=== PATIENT | female | born 1970 | race Caucasian/White ===

== ENCOUNTER → 2016-10-09 | Outpatient (CLI) | payer OTHER ==
[~2016-10-09] MED LIST: ASMANEX HFA13 GM IH; ASPIR-LOW81 MG PO; ATROVENT H200 INHALA IH; AZITHROMYCIN500 M1 PO; BACLOFEN10 MG PO; BENICAR HCT 401 EACH PO; CORICIDIN HBP1 EAC5 PO; DICLOFENAC SOD100 MG PO; DICLOFENAC SODI50 MG PO; FLEXERIL10 MG PO; GABAPENTIN300 MG PO; GUAIFENESIN WI120 M1 PO; HYDROCHLOROTHIA25 MG PO; LEVAQUIN500 MG PO; LOPRESSOR100 M1 PO; METOPROLOL TAR100 MG PO; METOPROLOL TART50 MG PO; MOTRIN800 MG PO; NAPROXEN500 MG PO; NEURONTIN800 MG PO; NOHOMEMEDS; NORCO 5/3251 TABLET PO; PERCOCET 5/31 TABLET PO; PREDNISONE10 M1 PO; PREDNISONE20 MG PO; PROAIR HFA8.5 GM IH; RELAFEN750 MG PO; TOLTERODINE TART2 MG PO; TRAMADOL HCL50 MG PO; VALIUM5 MG PO; VALSARTAN160 MG PO; ZANAFLEX4 MG PO; ZYRTEC10 M3 PO
== END | disposition home or self-care (01) ==
LOC: CDC 10:51
DX: R94.31 Abnormal electrocardiogram [ECG] [EKG] (principal); M25.532 Pain in left wrist; G56.02 Carpal tunnel syndrome, left upper limb; G56.22 Lesion of ulnar nerve, left upper limb
CPT/HCPCS: 93000

== ENCOUNTER 2016-10-11 12:41 | Day surgery (SDC) | payer OTHER ==
[~2016-10-11] VITALS: Ht 157.5 cm; Wt 63.5 kg
[~2016-10-11 12:41] MED LIST changes: -RELAFEN750 MG PO; -TOLTERODINE TART2 MG PO
[2016-10-11] MEDS ORDERED: TOLTERODINE TART2 MG PO (13:27)
[2016-10-11] MEDS ORDERED: RELAFEN750 MG PO (13:28)
[2016-10-11 13:40] VITALS: BP 141/76
[2016-10-11 19:02] VITALS: BP 137/81
== END 2016-10-11 19:10 | disposition home or self-care (01) ==
LOC: SDC
DX: G56.02 Carpal tunnel syndrome, left upper limb (principal); G56.22 Lesion of ulnar nerve, left upper limb; I10 Essential (primary) hypertension; J44.9 Chronic obstructive pulmonary disease, unspecified; M54.30 Sciatica, unspecified side
CPT/HCPCS: 93005; J1100; J2250; J2405; J3010; S0020

== ENCOUNTER 2016-12-29 19:26 | Emergency (ER) | payer OTHER ==
[~2016-12-29] VITALS: Ht 157.5 cm; Wt 67.7 kg
[~2016-12-29 19:26] MED LIST changes: +RELAFEN750 MG PO; +TOLTERODINE TART2 MG PO
[2016-12-29 20:02] LABS: HEMATOCRIT 40.7 % (36.0-46.0); MCH 30.2 PG (29.0-34.0); MCHC 33.4 G/DL (30.0-36.0); MCV 90.2 FL (83-99); MEAN PLAT.VOLUME 10.5 uM^3 (9.5-12.4); PLATELET COUNT 237 K/uL (156-360); RBC DIS.WIDTH-CV 12.9 % (11.8-14.6); RBC DIS.WIDTH-SD 42.4 % (39-53); RED BLOOD COUNT 4.51 M/uL (3.80-5.20)
[2016-12-29 20:37] LABS: CHLORIDE 102 mEq/L (99-109); POTASSIUM 3.8 mEq/L (3.7-5.4); SODIUM 140 mEq/L (136-147)
[2016-12-29 20:38] LABS: GLUCOSE 106 mg/dL (70-99)
[2016-12-29 20:40] LABS: ANION GAP 13 MEQ/L (2-14)
[2016-12-29 20:42] LABS: GFR ESTIMATE (CALCULATED) > 59 mL/min/
[2016-12-29 20:43] LABS: UREA NITROGEN (BUN) 17 mg/dL (9-23)
[2016-12-29 20:52] LABS: QUANTITATIVE HCG < 4.0 MIU/ML
[2016-12-29 21:10] LABS: ADD MIUA? NO; BILIRUBIN NEGATIVE; BLOOD NEGATIVE; COLOR STRAW ((YELLOW)); GLUCOSE (STRIP) NEGATIVE; KETONES NEGATIVE; LEUKOCYTES NEGATIVE; NITRITE NEGATIVE; PROTEIN (STRIP) NEGATIVE; SPECIFIC GRAVITY 1.008 (1.000-1.030); UROBILINOGEN 0.2 MG/DL (0.2-1.0)
[2016-12-29] MEDS ORDERED: ANTIVERT25 MG PO (22:02)
[2016-12-29] MEDS ORDERED: PHENERGAN25 MG PR (22:02)
[2016-12-29] MEDS ORDERED: PROMETHAZINE HC25 M1 PO (22:02)
[2016-12-29] MEDS ORDERED: PREDNISONE20 MG PO (22:02)
[2016-12-29 22:40] VITALS: BP 112/78
== END 2016-12-29 22:43 | disposition home or self-care (01) ==
LOC: EME 19:26
PROVIDERS: Physician Assistant
DX: J06.9 Acute upper respiratory infection, unspecified (principal); J44.0 Chronic obstructive pulmonary disease with (acute) lower respiratory infection; J20.9 Acute bronchitis, unspecified; R11.0 Nausea; H66.92 Otitis media, unspecified, left ear; F17.200 Nicotine dependence, unspecified, uncomplicated; I10 Essential (primary) hypertension
CPT/HCPCS: 71020; 80048; 81003; 84702; 85027; 94640; 99281; 99285; J2550; J7512; Q0169

== ENCOUNTER 2017-11-16 21:35 | Observation (INO) | payer OTHER ==
[~2017-11-16] VITALS: Ht 160 cm; Wt 63.1 kg
[~2017-11-16 21:35] MED LIST changes: +ANTIVERT25 MG PO; +AZITHROMYCIN250 MG PO; +HYDROCODON-ACE1 EAC7 PO; +KENALOG,ARISTOC15 G2 TP; +PHENERGAN25 MG PR; +PREDNISONE50 MG PO; +PROMETHAZINE HC25 M1 PO
[2017-11-16 22:09] LABS: HEMATOCRIT 39.9 % (36.0-46.0); HEMOGLOBIN 13.9 G/DL (11.9-15.5); MCH 31.2 PG (29.0-34.0); MCHC 34.8 G/DL (30.0-36.0); MCV 89.7 FL (83-99); PLATELET COUNT 230 K/uL (156-360); RBC DIS.WIDTH-CV 12.4 % (11.8-14.6); RBC DIS.WIDTH-SD 40.6 % (39-53); RED BLOOD COUNT 4.45 M/uL (3.80-5.20); WHITE BLOOD COUNT 6.8 K/uL (4.1-10.2)
[2017-11-16 22:19] LABS: CHLORIDE 100 mEq/L (99-109); POTASSIUM 3.8 mEq/L (3.7-5.4); SODIUM 140 mEq/L (136-147)
[2017-11-16 22:21] LABS: GLUCOSE 76 mg/dL (70-99)
[2017-11-16 22:24] LABS: CREATININE 1.2 mg/dL (0.6-1.3); GFR ESTIMATE (CALCULATED) 51 mL/min/
[2017-11-16 22:25] LABS: UREA NITROGEN (BUN) 27 mg/dL (9-23)
[2017-11-16 22:33] LABS: TROP-I INTERPRETATION NEGATIVE; TROPONIN-I < 0.01 ng/mL (0.0-0.30)
[2017-11-17 04:23] LABS: ALBUMIN 3.6 g/dL (3.2-4.8); CHLORIDE 110 mEq/L (99-109); POTASSIUM 3.6 mEq/L (3.7-5.4); SODIUM 143 mEq/L (136-147)
[2017-11-17 04:25] LABS: GLUCOSE 93 mg/dL (70-99); TOTAL PROTEIN 5.7 g/dL (6.4-8.3)
[2017-11-17 04:27] LABS: TOTAL BILIRUBIN 0.5 mg/dL (0.0-1.0)
[2017-11-17 04:29] LABS: ALKALINE PHOSPHATASE 53 IU/L (3-129); CREATININE 0.9 mg/dL (0.6-1.3); GFR ESTIMATE (CALCULATED) > 59 mL/min/
[2017-11-17 04:30] LABS: AST (GOT) 12 IU/L (2-34); UREA NITROGEN (BUN) 24 mg/dL (9-23)
[2017-11-17 04:32] LABS: ALT (GPT) 10 IU/L (3-49); LIPASE 61 U/L (1.0-51.0)
[2017-11-17 05:16] LABS: TROP-I INTERPRETATION NEGATIVE; TROPONIN-I < 0.01 ng/mL (0.0-0.30)
[2017-11-17 11:23] LABS: TROP-I INTERPRETATION NEGATIVE; TROPONIN-I < 0.01 ng/mL (0.0-0.30)
[2017-11-17 15:00] VITALS: BP 93/62
== END 2017-11-17 18:25 | disposition home or self-care (01) ==
LOC: EME 21:35 → EDOF 11-17 03:20 → ENRESERV 11-17 03:48 → 5WEST 11-17 14:40
PROVIDERS: Hospitalist
DX: R07.9 Chest pain, unspecified (principal); I95.9 Hypotension, unspecified; R94.31 Abnormal electrocardiogram [ECG] [EKG]; I11.9 Hypertensive heart disease without heart failure; J44.9 Chronic obstructive pulmonary disease, unspecified; G89.4 Chronic pain syndrome; M54.30 Sciatica, unspecified side; R49.0 Dysphonia; Z86.19 Personal history of other infectious and parasitic diseases; F17.200 Nicotine dependence, unspecified, uncomplicated; Z80.0 Family history of malignant neoplasm of digestive organs; Z80.1 Family history of malignant neoplasm of trachea, bronchus and lung
CPT/HCPCS: 71046; 80048; 80053; 81003; 83605; 83690; 84484; 85027; 85379; 93005; 94640; 94640 76; 94760; 99202; 99281; 99285; G0378; J1650; J2270; J7030

== ENCOUNTER 2017-12-03 08:01 | Day surgery (SDC) | payer OTHER ==
[~2017-12-03] VITALS: Ht 157.5 cm; Wt 64.0 kg
[2017-12-03 08:30] VITALS: BP 118/77
[2017-12-03 14:10] VITALS: BP 120/80
[2017-12-03 15:00] VITALS: BP 107/63
== END 2017-12-03 15:00 | disposition home or self-care (01) ==
LOC: SDC
PROC: 0HBU0ZX Excision of Left Breast, Open Approach, Diagnostic (ICD-10-PCS; principal; 2017-12-03)
DX: D24.2 Benign neoplasm of left breast (principal); J44.9 Chronic obstructive pulmonary disease, unspecified; F17.200 Nicotine dependence, unspecified, uncomplicated; I10 Essential (primary) hypertension; R73.02 Impaired glucose tolerance (oral)
CPT/HCPCS: 88307; 88341 TC; 88342 TC; J0690; J1100; J1170; J2250; J2405; J2710; S0020

== ENCOUNTER 2017-12-29 21:28 | Emergency (ER) | payer OTHER ==
[~2017-12-29] VITALS: Ht 160 cm; Wt 63.6 kg
[~2017-12-29 21:28] MED LIST changes: +HYDROCODON-ACE1 EAC8 PO
[2017-12-29] MEDS ORDERED: BACTRIM,SEPT1 TABLET PO (21:55)
[2017-12-29 22:21] VITALS: BP 139/87
== END 2017-12-29 22:26 | disposition home or self-care (01) ==
LOC: EME 21:28
DX: T81.4XXA Infection following a procedure, initial encounter (principal); L40.9 Psoriasis, unspecified; F17.200 Nicotine dependence, unspecified, uncomplicated
CPT/HCPCS: 99281; 99283

== ENCOUNTER 2018-01-23 05:52 | Day surgery (SDC) | payer OTHER ==
[~2018-01-23] VITALS: Ht 157.5 cm; Wt 63.0 kg
[~2018-01-23 05:52] MED LIST changes: +BACTRIM,SEPT1 TABLET PO; +KLONOPIN0.5 M1 PO
[2018-01-23 07:35] VITALS: BP 134/85
[2018-01-23 09:58] VITALS: BP 128/87
[2018-01-23 10:50] VITALS: BP 127/82
== END 2018-01-23 11:00 | disposition home or self-care (01) ==
LOC: SDC
PROC: 0HBU0ZZ Excision of Left Breast, Open Approach (ICD-10-PCS; principal; 2018-01-23)
DX: N60.92 Unspecified benign mammary dysplasia of left breast (principal); I10 Essential (primary) hypertension; J44.9 Chronic obstructive pulmonary disease, unspecified; F17.200 Nicotine dependence, unspecified, uncomplicated
CPT/HCPCS: 88307; J0131; J0330; J0690; J1100; J1885; J2250; J2405; J3010; J7643; S0020

== ENCOUNTER 2018-03-30 09:03 | Emergency (ER) | payer OTHER ==
[~2018-03-30] VITALS: Ht 160 cm; Wt 64.1 kg
[2018-03-30] MEDS ORDERED: ZITHROMAX Z-PA250 MG PO (10:58)
[2018-03-30] MEDS ORDERED: FLEXERIL10 MG PO (10:58)
[2018-03-30] MEDS ORDERED: ROBITUSSIN AC,T10 ML PO (10:58)
[2018-03-30 11:21] VITALS: BP 119/86
== END 2018-03-30 11:22 | disposition home or self-care (01) ==
LOC: EME 09:03
DX: J20.9 Acute bronchitis, unspecified (principal); S39.012A Strain of muscle, fascia and tendon of lower back, initial encounter; L40.9 Psoriasis, unspecified; Z87.891 Personal history of nicotine dependence
CPT/HCPCS: 71046; 93005; 99281; 99284

== ENCOUNTER 2018-04-04 09:10 | Emergency (ER) | payer OTHER ==
[~2018-04-04] VITALS: Ht 160 cm; Wt 64.4 kg
[~2018-04-04 09:10] MED LIST changes: +ROBITUSSIN AC,T10 ML PO; +ZITHROMAX Z-PA250 MG PO
[2018-04-04 10:42] LABS: APPEARANCE CLEAR ((CLEAR)); BILIRUBIN NEGATIVE; BLOOD NEGATIVE; COLOR STRAW ((YELLOW)); GLUCOSE (STRIP) NEGATIVE; KETONES NEGATIVE; LEUKOCYTES NEGATIVE; NITRITE NEGATIVE; PROTEIN (STRIP) NEGATIVE; SPECIFIC GRAVITY 1.006 (1.000-1.030); UROBILINOGEN 0.2 MG/DL (0.2-1.0)
[2018-04-04 10:52] LABS: HEMATOCRIT 42.8 % (36.0-46.0); HEMOGLOBIN 14.6 G/DL (11.9-15.5); MCH 29.9 PG (29.0-34.0); MCHC 34.1 G/DL (30.0-36.0); MCV 87.5 FL (83-99); PLATELET COUNT 195 K/uL (156-360); RBC DIS.WIDTH-CV 12.1 % (11.8-14.6); RED BLOOD COUNT 4.89 M/uL (3.80-5.20); WHITE BLOOD COUNT 8.3 K/uL (4.1-10.2)
[2018-04-04 11:04] LABS: CHLORIDE 101 mEq/L (99-109); POTASSIUM 4.4 mEq/L (3.7-5.4); SODIUM 141 mEq/L (136-147)
[2018-04-04 11:05] LABS: GLUCOSE 102 mg/dL (70-99)
[2018-04-04 11:09] LABS: CREATININE 0.9 mg/dL (0.6-1.3); GFR ESTIMATE (CALCULATED) > 59 mL/min/
[2018-04-04 11:10] LABS: UREA NITROGEN (BUN) 16 mg/dL (9-23)
[2018-04-04 11:19] LABS: QUANTITATIVE HCG < 4.0 MIU/ML
[2018-04-04 11:35] LABS: ERTH.SED.RATE 6 MM/HR (0-20)
[2018-04-04] MEDS ORDERED: MEDROL DOSEPAK4 MG PO (13:50)
[2018-04-04 14:52] VITALS: BP 110/75
== END 2018-04-04 14:52 | disposition home or self-care (01) ==
LOC: EME 09:10
PROVIDERS: Nurse Practitioner Family
DX: M54.5 Low back pain (principal); M54.16 Radiculopathy, lumbar region; G89.29 Other chronic pain; L40.9 Psoriasis, unspecified; Z87.891 Personal history of nicotine dependence
CPT/HCPCS: 72148; 80048; 81003; 84702; 85027; 85651; 99281; 99284; J1100; J3010